=== PATIENT | male | born 1995 | race Caucasian/White ===

== ENCOUNTER 2020-12-17 15:41 | Emergency (ER) | payer OTHER ==
[~2020-12-17] VITALS: Ht 172.7 cm; Wt 70.3 kg
[2020-12-17 16:56] LABS: ABSOLUTE NEUTROPHILS 6.2 thou/uL (1.4-8.2); BASOPHILS 0.6 % (0.0-2.0); EOSINOPHILS 0.9 % (0.0-3.0); HEMATOCRIT 45.9 % (42.0-52.0); LYMPHOCYTES 17.3 % (24.0-44.0); MCH 28.8 pg (26.0-34.0); MCHC 32.7 g/dL (28.0-37.0); MONOCYTES 7.2 % (1.0-8.0); PLATELET COUNT 358 thou/uL (150-400); RBC 5.21 mil/uL (4.50-6.00); RDW 13.9 % (10.5-14.5); WBC 8.4 thou/uL (4.0-11.0)
[2020-12-17 17:04] LABS: CALCIUM 8.9 mg/dL (8.5-10.1); CREATININE 0.9 mg/dL (0.7-1.3); POTASSIUM 4.1 mmol/L (3.5-5.1)
[2020-12-17] MEDS ORDERED: NAPROSYN500 M1 PO (18:26)
[2020-12-17 18:33] VITALS: BP 119/77
== END 2020-12-17 18:33 | disposition home or self-care (01) ==
LOC: ER 15:41
PROVIDERS: Emergency Medicine
DX: S14.0XXA Concussion and edema of cervical spinal cord, initial encounter (principal); S16.1XXA Strain of muscle, fascia and tendon at neck level, initial encounter; V49.9XXA Car occupant (driver) (passenger) injured in unspecified traffic accident, initial encounter; Y93.89 Activity, other specified; Y92.89 Other specified places as the place of occurrence of the external cause; Y99.8 Other external cause status